=== PATIENT | female | born 1995 | race Caucasian/White ===

== ENCOUNTER 2020-02-24 11:54 | Observation (INO) | payer OTHER, SELFPAY ==
[2020-02-24] VITALS (19 sets, daily range): BP systolic 109–132; BP diastolic 70–80; PULSE 76–146; TEMP 36.4; O2SAT 95–100
[2020-02-24] MEDS: TERBUTALINE SULFATE 1 MG/ML VIAL (12:07)
--- NOTE | 2020-02-24 12:36 | OBADM ---
This patient, Yennifer Shane, admitted to the OB room OB Post 117 for observation. Patient/family oriented to hospital policies and general routines including ID bracelet, bed and alarms, visiting hours, pain management, procedures, bathroom and other care routines, personal items, smoking policy, room service/diet, and visiting hours. Patient/Family are encouraged to report perceived risks to care and to ask questions if they do not understand what they are told or what they should do.
[2020-02-24 12:42] LABS: Add Urine Microscopic? YES; Appearance Urine Cloudy (Clear); Bacteria Urine Trace /hpf; Bilirubin Urine Negative (Negative); Blood Urine Negative (Negative); Color Urine Yellow (Yellow); Glucose Urine UA Negative (Negative); Ketones Urine Negative (Negative); Leukocyte Esterase Ur 1+ LEU/UL (NEGATIVE); Mucus Urine Rare /lpf; Nitrate Urine Negative (Negative); Protein Urine Negative (Negative); RBC Urine 0-2 /hpf (0-2); Specific Grav Ur 1.017 (1.001-1.035); Squamous Epithelial Cell Urine Many /hpf (Few)
--- NOTE | 2020-02-24 12:48 | PC.NURSE ---
1145- called,informed pt came in for leaking of fluid. ROM plus was negative, pt noted to be having contractions about every 2-4 minutes. Informed pt has hx of chlamydia and trichomonis twice in this and pt states she wasn't told she was ever negative. Orders received to swab vagina for chlamydia/gonorrhea and trichomonis and give terbutaline for contractions.
--- NOTE | 2020-02-24 12:52 | PC.NURSE ---
1246- on unit, orders received can discharge pt home if contractions continue to be less then 6/hr.
--- NOTE | 2020-03-14 07:55 | P.PNOB_ITS ---
OB - Triage/Final Diagnosis Evaluation Laboratory results: Laboratory Tests 02/24/20 02/24/20 02/24/20 12:11 12:15 12:15 Urine Color Yellow Urine Appearance Cloudy H Urine pH 7.0 Ur Specific [place] 1.017 Urine Protein Negative Urine Glucose (UA) Negative Urine Ketones Negative Ur Blood (Man) Negative Urine Nitrate Negative Urine Bilirubin Negative Urine Urobilinogen 4.0 H Ur Leukocyte Esterase 1+ H Urine RBC 0-2 Urine WBC 4-6 H Ur Squamous Epith Cells Many H Urine Bacteria Trace Urine Mucus Rare C.trachomatis RNA (TMA) Not detected N.gonorrhoeae RNA (TMA) Not detected Trichomonas Direct ID Negative Final Diagnosis (1) Vaginal discharge during in third trimester: Code(s): O26.893 - Other specified related conditions, third trimester; N89.8 - Other specified noninflammatory disorders of vagina Status: Acute
== END 2020-02-24 13:10 | disposition home or self-care (01) ==
LOC: ANHOBOP 11:55 → ANHOBPP 11:55
PROVIDERS: Admitting Provider Obstetrics & Gynecology; PCP Internal Medicine; Visit Provider Obstetrics & Gynecology
DX: O26.893 Other specified pregnancy related conditions, third trimester (principal); N89.8 Other specified noninflammatory disorders of vagina; Z3A.00 Weeks of gestation of pregnancy not specified
CPT/HCPCS: 81001; 84112; 87086; 87491; 87591; 87808; G0378; G0379; J3105

== ENCOUNTER 2020-03-21 20:04 | Observation (INO) | payer OTHER, SELFPAY ==
[2020-03-21 20:20] VITALS: BMI 38.4
--- NOTE | 2020-03-21 22:15 | OBADM ---
This patient, Yennifer Shane, admitted to the OB room Labor/Delivery/Recovery 106 for observation. Patient/family oriented to hospital policies and general routines including ID bracelet, bed and alarms, visiting hours, pain management, procedures, bathroom and other care routines, personal items, smoking policy, room service/diet, and visiting hours. Patient/Family are encouraged to report perceived risks to care and to ask questions if they do not understand what they are told or what they should do.
--- NOTE | 2020-04-04 08:15 | PM.OBTRLD ---
OB - Triage/Final Diagnosis Final Diagnosis (1) Spotting affecting in third trimester: Code(s): O26.853 - Spotting complicating , third trimester Status: Acute
== END 2020-03-21 22:22 | disposition home or self-care (01) ==
PROVIDERS: Admitting Provider Obstetrics & Gynecology; Visit Provider Obstetrics & Gynecology
DX: O26.853 Spotting complicating pregnancy, third trimester (principal); Z3A.00 Weeks of gestation of pregnancy not specified
CPT/HCPCS: G0378; G0379

== ENCOUNTER 2020-04-04 06:12 | Inpatient (IN) | payer OTHER, SELFPAY ==
[2020-04-04] VITALS (170 sets, daily range): BP systolic 91–148; BP diastolic 49–107; PULSE 61–123; RESP 18; TEMP 35.9–37.1; O2SAT 82–100; BMI 37.7
--- NOTE | 2020-04-04 06:12 | LDADM ---
This patient, Yennifer Shane, was admitted to Labor/Delivery/Recovery 103 on 04/04/20 at 06:12. Plans for labor, pain management and were discussed with patient. Patient/family oriented to hospital policies and general routines including ID bracelet, bed and alarms, visiting hours, pain management, procedures, bathroom and other care routines, personal items, smoking policy, room service/diet and guest tray routines, security routines, and visiting hours. Patient/Family are encouraged to report perceived risks to care and to ask questions if they do not understand what they are told or what they should do. See OBIX for further documentation.
[2020-04-04 07:28] LABS: Basophils Percent Auto 0.4 % (0.2-1.2); Eosinophils Absolute Auto 0.2 K/mm3 (0-0.3); Eosinophils Percent Auto 1.4 % (0-4.4); Hematocrit 35.3 % (37.0-47.0); Hemoglobin 12.2 g/dL (12.0-15.0); Immature Granulocyte Absolute 0.06 K/mm3 (0.00-0.031); Immature Granulocyte Percent A 0.5 % (0-0.5); Lymphocytes Absolute Auto 2.44 K/mm3 (0.9-3.2); Lymphocytes Percent Auto 21.5 % (18.3-44.2); Mean Corpuscular HGB Conc 34.6 g/dl (32-36); Mean Corpuscular Hemoglobin 32.9 pg (26-34); Mean Corpuscular Volume 95.1 fl (80-100); Mean Platelet Volume 9.5 fl (7.4-10.4); Monocytes Absolute Auto 0.6 K/mm3 (0.1-0.6); Monocytes Percent Auto 5.4 % (2.6-8.5); Neutrophils Absolute Auto 8.1 K/mm3 (1.3-6.7); Neutrophils Percent Auto 70.8 % (45.5-73.1); Platelet Count Result 247 k/mm3 (150-375); Red Blood Count 3.71 M/mm3 (4.2-5.4); Red Cell Distribution Width 12.4 % (11.5-14.5); White Blood Count 11.4 K/mm3 (4.5-10.0)
[2020-04-04] MEDS: LACTATED RINGERS 1,000 ML 125 ML IV CONT ×3 (07:41→14:00)
[2020-04-04] MEDS: OXYTOCIN 30 UNITS/NS 500 ML 30 UNITS/500 ML BAG IV CONT (07:42)
--- NOTE | 2020-04-04 08:00 | WPDOBADMIT ---
Obstetrics - Admit Note Admission Note: 24 y/o @ 39w2d here for elective induction of labor. History of hsv. Has been on suppressive therapy since 36 weeks. No c/o outbreak symptoms and bright light exam unremarkable. Cervix 5/90/-2. AROM moderate amount of clear odorless fluid. Anticipate . record reviewed. No pertinent additions to the history and/or any subsequent changes in the physical findings that are not consistent with the expected course of the were found. Additions to the history and/or subsequent changes in the physical findings follow. None.
--- NOTE | 2020-04-04 08:43 | WPDANESEPP ---
Anes - Eval Pre Procedure Procedure: labor epidural Date/Time: 04/04/20 08:43 Surgeon: caryn puckett Preop Diagnosis: pain during labor Pre Op Diagnosis: iol Patient Data Age: 24 Gender: F Height: 5 ft 6 in Weight: 106 kg Last Vital Signs Temp 36.4 C L 04/04/20 08:13 Pulse 83 04/04/20 08:31 BP 116/82 04/04/20 08:31 Allergies Allergy/AdvReac Type Severity Reaction Status Date / Time No Known Allergies Allergy Unverified 03/06/18 18:11 Home Medications Medication Instructions Recorded Confirmed Type PNV cmb#95-ferrous fumarate-FA 1 tablet PO DAILY 03/10/20 03/21/20 History [] valacyclovir [Valtrex] 500 mg PO DAILY 03/10/20 04/04/20 History Laboratory Tests 04/04/20 04/04/20 04/04/20 07:20 07:20 07:20 WBC 11.4 K/mm3 H K/mm3 (4.5-10.0) RBC 3.71 M/mm3 L M/mm3 (4.2-5.4) Hgb 12.2 g/dL g/dL (12.0-15.0) Hct 35.3 % L % (37.0-47.0) MCV 95.1 fl fl (80-100) MCH 32.9 pg pg (26-34) MCHC 34.6 g/dl g/dl (32-36) RDW 12.4 % % (11.5-14.5) Plt Count 247 k/mm3 k/mm3 (150-375) MPV 9.5 fl fl (7.4-10.4) Immature Gran % (Auto) 0.5 % % (0-0.5) Neut % (Auto) 70.8 % % (45.5-73.1) Lymph % (Auto) 21.5 % % (18.3-44.2) Dixon % (Auto) 5.4 % % (2.6-8.5) Eos % (Auto) 1.4 % % (0-4.4) Baso % (Auto) 0.4 % % (0.2-1.2) Lymph # (Auto) 2.44 K/mm3 K/mm3 (0.9-3.2) Dixon # (Auto) 0.6 K/mm3 K/mm3 (0.1-0.6) Eos # (Auto) 0.2 K/mm3 K/mm3 (0-0.3) Baso # (Auto) 0.0 K/mm3 K/mm3 (0.0-0.1) Abs Immat Gran (auto) 0.06 K/mm3 H K/mm3 (0.00-0.031) Absolute Neuts (auto) 8.1 K/mm3 H K/mm3 (1.3-6.7) Absolute Nucleated RBC 0.0 K/mm3 K/mm3 (0.0-0.012) Nucleated RBC % 0.0 % % (0.0-0.2) RPR Pending Blood Type B Positive Antibody Screen Negative : gestational age (MARKO 04/09) Patient hx anesthesia problems: none Family hx anesthesia problems: none PMFSH Family History Family History Grandparent Congenital heart disease Diabetes mellitus Father Asthma Mother Asthma Social History Social History Smoking packs per day: 1 Smoking cigarettes per day: 20.0 Smoking status: Current every day smoker Tobacco type: cigarettes Substance use: current Gender identity (if verbalized by the patient): Female Spiritual care concerns: No Exam Day of Procedure 04/04/20 08:43 Patient weight: obese Heart: regular rate and rhythm Lungs: clear to auscultation and normal air movement Neurological: alert and oriented
[2020-04-04 12:55] LABS: Benzodiazepines Screen Urine Negative (Negative)
[2020-04-04 12:56] LABS: Barbiturate Screen Urine Negative (Negative)
[2020-04-04 13:01] LABS: Amphetamine Screen Urine Negative (Negative); Cannabinoid Screen Urine Positive (Negative); Cocaine Screen Urine Negative (Negative); Methadone Screen Urine Negative (Negative); Opiate Screen Urine Negative (Negative); Phencyclidine Screen Urine Negative (Negative)
--- NOTE | 2020-04-04 15:08 | PM.OBPRVD ---
OB - Delivery Note Procedure Delivery date: 04/04/20 Intrapartal events: None Induction method: per pitocin protocol Delivery monitor: external FHT and external uterine Route of delivery: Episiotomy description: None Laceration description: None Estimated blood loss (mL): 41 Anesthesia type: Epidural Baby Date of : 04/04/20 Time of : 14:53 Weeks of gestation at delivery: 39 Weight (pounds): 8 Weight (ounces): 3 presentation: vertex position: Right Occiput Anterior Placenta delivery description: Spontaneous cord vessel description: Nuchal Cord (Delivered through.) score one minute: 8 score five minutes: 9
[2020-04-04] MEDS: OXYTOCIN 30 UNITS/NS 500 ML 30 UNITS/500 ML BAG 125 UNITS IV CONT (15:47)
--- NOTE | 2020-04-04 17:24 | PC.NURSE ---
Patient transferred to post room #284 via [id number]. Support person present. Oriented to unit, room, information board, rooming in, admission packet and security measures. Patient verbalizes understanding.
[2020-04-04] MEDS: IBUPROFEN 600 MG TABLET PO (17:33)
[2020-04-05 05:56] LABS: Hemoglobin 10.8 g/dL (12.0-15.0)
--- NOTE | 2020-04-05 07:33 | PM.OBPNVD ---
OB - PN: Subj Subjective Date/time seen: 04/05/20 07:33 Patient comments: no complaints baby status: doing well OB - PN: Obj Data Labs CBC & Chem 7: 04/05/20 04:13 Labs: Laboratory Results - last 24 hr 04/04/20 04/04/20 04/05/20 07:20 12:20 04:13 Hgb 10.8 L Hct 32.0 L Urine Opiates Screen Negative Urine Methadone Screen Negative Ur Barbiturates Screen Negative Ur Phencyclidine Scrn Negative Ur Amphetamine Screen Negative U Benzodiazepines Scrn Negative Urine Cocaine Screen Negative U Cannabinoids Screen Positive A Blood Type B Positive Antibody Screen Negative OB - PN A/P Plan day: 1 Plan: routine care Time Spent With Patient Time: Total time spent is greater than 50% in coordination of care (as documented) at patient's floor/unit and/or counseling patient: Review of Systems Review of Systems: All systems reviewed & are unremarkable except as noted in HPI and below Exam Const: General: cooperative Limitations: no limitations
--- NOTE | 2020-04-05 07:50 | WPDANLDPN2 ---
Anes-Prog Note L&D Date/Time: 04/05/20 07:50 Comfortable throughout: labor and delivery Neuraxial method: epidural Epidural/Spinal procedure site: clean & non-tender Neuro status: Neuro function grossly intact. Cardiovascular status: normal Respiratory status: normal Airway patency: baseline Mental status: baseline Post-Op hydration status: normal Vital Signs: Last Vital Signs Temp 37.0 C 04/04/20 19:45 Pulse 78 04/04/20 19:45 Resp 18 04/04/20 19:45 BP 124/77 04/04/20 19:45 Pulse Ox 100 04/04/20 17:45 Pain score (VAS): 07/03 I/O: Intake & Output 04/04/20 04/04/20 04/05/20 15:59 23:59 07:59 Intake Total 2000 500 Output Total 41 200 Balance 1959 300 Post-procedural complaints: none Patient feedback: Patient satisfied with anesthetic care.
[2020-04-05] MEDS: IBUPROFEN 600 MG TABLET PO (10:13)
--- NOTE | 2020-04-05 10:24 | PC.NURSE ---
Patient was given the opportunity to view the discharge video Mother & Baby Care, The First Two Weeks and to ask questions. Patient declined viewing the video and has been given the mother/baby guide for home reference.
[2020-04-05 13:21] LABS: Rapid Plasma Reagin Non-Reactive (NonReactive)
[2020-04-06 10:00] VITALS: BP 139/85; PULSE 93; RESP 14; TEMP 36.7
--- NOTE | 2020-05-02 20:31 | PM.OBDSVD ---
DS: Admitting Diagnosis Admitting Diagnosis Admitting Diagnosis: IOL DS: Discharge Diagnosis Discharge Diagnosis (1) Vaginal delivery: Code(s): O80 - Encounter for full-term uncomplicated delivery Status: Acute OB - DS: Summary OB Procedures : None OB Procedures Intrapartum: Spontaneous Vag Delivery OB Procedures: : None Time Spent with Patient Time attestation: Total time spent providing and/or coordinating discharge services: Discharge Plan Discharge Attending physician on discharge: Molina Godinez Consulting providers: Gayle Hou ; Kaitlin Wade Discharging Clinician: Kaitlin Wade Patient Disposition: Home, Self-Care Activity: pelvic rest Diet: regular Discharge Instructions: Education: Mom and Baby Guide Given to: Mother Follow-Up: Call your delivering provider's office for an appointment to be seen in: 4 Weeks Mom and baby [facility] the follow-up appointment. Appointment Date/Time: April 06, 2020 at 10:00 am What to expect at your follow-up visit: Blood Pressure Check Physical Assessment Call [phone] if you are unable to keep your appointment time. BREAST CARE: * Bottle Feeding: * May apply ice packs EPISIOTOMY/PERINEAL CARE: * Until bleeding stops, use your sonya bottle after urinating * Change your pad frequently throughout the day * You may take sitz baths several times a day (fill your bathtub with warm water and soak for 20 minutes.) Do NOT bathe in the water * No tub baths until seen by your physician - You may shower ACTIVITY: * Rest as much as possible. * Do not exercise or lift anything heavier than your baby (such as laundry or other children.) * Avoid stairs or driving as much as possible. * Do not put anything into the vagina. No douching, tampons, or sexual activity until seen by physician. NOTIFY PHYSICIAN IF YOU HAVE ANY QUESTIONS OR IF ANY OF THE FOLLOWING SYMPTOMS OCCUR: * If your episiotomy or incision becomes red, swollen, or more painful than what you have experienced in the hospital. * If your vaginal bleeding becomes foul smelling. * If your vaginal bleeding becomes more heavy than a period or if your bleeding changes from pink to bright red. However, you may pass an occasional walnut-sized clot once or twice for the first week . * If you experience a sharp, shooting pain in your calves. * If you discover a hard, reddened area on your breast or if you experience flu-like symptoms. DIET: * Eat regular, well-balanced meals. * Drink plenty of fluids daily. If , drink to thirst. Patient Instructions: How to Stop Smoking (DC) Stand Alone Forms: General Discharge Information Follow-up/Referrals: Gayle Hou CNM [Certified Nurse Acetylene Burner] - 4 Weeks Discharge Medications: Continued valacyclovir [Valtrex] 500 mg Tablet 500 mg PO DAILY RF: 0 PNV cmb#95-ferrous fumarate-FA [] 28 mg iron- 800 mcg Tablet 1 tablet PO DAILY RF: 0 Date of admission: 04/04/20 06:12 Primary Care Provider: PHYSICIAN,ELECTRICAL ASSEMBLY TECHNICIAN Admitting Provider: Molina Godinez Attending physician on admission: Molina Godinez Condition: Stable
== END 2020-04-05 17:25 | disposition home or self-care (01) | DRG 560 ==
LOC: ANHLDR 06:14 → ANHOB2 17:32
PROVIDERS: Advanced Practice Midwife; Admitting Provider Obstetrics & Gynecology; Visit Provider Obstetrics & Gynecology
DX: O98.32 Other infections with a predominantly sexual mode of transmission complicating childbirth (principal); Z37.0 Single live birth; Z3A.39 39 weeks gestation of pregnancy; B00.9 Herpesviral infection, unspecified; O62.3 Precipitate labor; O69.81X0 Labor and delivery complicated by cord around neck, without compression, not applicable or unspecified; A56.8 Sexually transmitted chlamydial infection of other sites; O99.214 Obesity complicating childbirth; E66.9 Obesity, unspecified; O99.334 Smoking (tobacco) complicating childbirth; F17.210 Nicotine dependence, cigarettes, uncomplicated
CPT/HCPCS: 36415; 80307; 85014; 85018; 85025; 86592; 86850; 86900; 86901; A9270; J2590; J2795; J7120

== ENCOUNTER 2020-11-26 11:53 | Emergency (ER) | payer OTHER, SELFPAY ==
[2020-11-26 12:01] VITALS: BP 137/71; PULSE 100; RESP 14; TEMP 37; O2SAT 100
--- NOTE | 2020-11-26 12:25 | ED.URI ---
HPI - URI/Sore Throat General Chief Complaint: Upper Respiratory Infection Stated Complaint: Cough/congestion Time Seen by Provider: 11/26/20 12:08 Source: patient and RN notes reviewed Mode of arrival: ambulatory Limitations: no limitations History of Present Illness HPI Narrative: Patient presents today with a 1 week history of cough, rhinorrhea, congestion, postnasal drip, sneezing. The cough has worsened over the past 2 days. She does report intermittent pressure to the face. Denies fever, shortness of breath. States she has had a positive test at home a few weeks ago. She has an appointment set up in 10 days at an [facility]. She was on Augmentin approximately 2 months ago for chronic sinusitis diagnosed in the ER.[facility]. She has been taking Claritin without relief. Smokes 0.5 packs/day. MD elicited complaint: cough, rhinorrhea and nasal congestion Related Data Allergies Allergy/AdvReac Type Severity Reaction Status Date / Time clavulanic acid AdvReac Nausea and Verified 11/26/20 12:10 [From Augmentin] Vomiting Review of Systems Review of Systems: Narrative: CONSTITUTIONAL: Denies body aches, fever, chills, or sweats. EYES: Denies visual changes, redness, or discharge. ENT: Denies sore throat, or otalgia. + Congestion, rhinorrhea, postnasal drip, sneezing CARDIOVASCULAR: Denies chest pain, palpitations, or edema. RESPIRATORY: Denies dyspnea. + Cough GASTROINTESTINAL: Denies abdominal pain, nausea, vomiting, or diarrhea. GENITOURINARY: Denies dysuria or hematuria. SKIN: Denies rash, itching, or wounds. MUSCULOSKELETAL: Denies back pain, joint pain, or myalgia. NEUROLOGIC: Denies headache, numbness, tingling, or weakness. PSYCH: Denies depression or anxiety. [facility] Past Medical History Medical History (Updated 11/26/20 @ 12:42 by Mariposa Ponce, RADHA, BC) Bipolar disorder Depression PTSD (post-traumatic stress disorder) Family History Family History Grandparent Congenital heart disease Diabetes mellitus Father Asthma Mother Asthma Social History Social History (Updated 11/26/20 @ 12:42 by Mariposa Ponce, RADHA, ) Smoking packs per day: 0.25 Smoking cigarettes per day: 5.0 Smoking status: Current every day smoker Tobacco type: cigarettes Substance use: current Gender identity (if verbalized by the patient): Female Spiritual care concerns: No Comments At time of signature, I have reviewed and agree with nursing past medical, surgical, social and family history unless otherwise noted. Please see nursing chart for further information. There is no relevant family history pertinent to the presenting complaint Exam Narrative: Exam Narrative: GENERAL: Well-appearing, well-nourished, and in no acute distress. HEAD: Normocephalic, atraumatic. EYES: EOMI. No redness or drainage. Conjunctivae normal. ENT: Mucous membranes pink and moist. Nares congested. No rhinorrhea. Mild tenderness to the bilateral maxillary sinuses. TMs normal bilaterally. Throat normal. Uvula midline. NECK: Normal AROM. Supple. No lymphadenopathy. CHEST: No respiratory distress. Clear to auscultation. HEART: Regular rate and rhythm. No murmur appreciated. Normal peripheral pulses. EXTREMITIES: Normal range of motion. No edema. SKIN: Warm, dry, no rash. Capillary refill normal. Normal skin turgor. NEURO: No focal deficits. Alert and oriented x3. Gait steady. PSYCH: Normal affect. No signs of depression or anxiety. Course Vital Signs Vital signs: Vital Signs Temperature 98.6 F 11/26/20 12:01 Pulse Rate 100 11/26/20 12:01 Respiratory Rate 14 11/26/20 12:01 Blood Pressure 137/71 11/26/20 12:01 Pulse Oximetry 100 11/26/20 12:01 Temperature 98.6 F 11/26/20 12:01 Pulse Rate 100 11/26/20 12:01 Respiratory Rate 14 11/26/20 12:01 Blood Pressure 137/71 11/26/20 12:01 Pulse Oximetry 100
== END 2020-11-26 12:32 | disposition home or self-care (01) ==
PROVIDERS: Emergency Provider Nurse Practitioner
DX: J01.90 Acute sinusitis, unspecified (principal); F17.210 Nicotine dependence, cigarettes, uncomplicated
CPT/HCPCS: 99213; G0463

== ENCOUNTER 2025-03-27 11:26 | Emergency (ER) | payer SELFPAY ==
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
[2025-03-27 11:32] VITALS: BP 137/83; PULSE 95; RESP 20; TEMP 36.6; O2SAT 100
--- NOTE | 2025-03-27 11:48 | ED.URI ---
HPI - URI/Sore Throat General Chief Complaint: Upper Respiratory Infection Stated Complaint: aches/cough/sneezing Time Seen by Provider: 03/27/25 11:30 Source: patient and RN notes reviewed Mode of arrival: ambulatory Limitations: no limitations History of Present Illness HPI Narrative: 29-year-old female presents Express Care complaining of upper respiratory symptoms for 3 days. Patient reports sore throat, cough, congestion, runny nose, body aches, chills. Patient denies any nausea, vomiting, diarrhea, chest pain, breathing problems, earache, abdominal pain, or any other symptoms. Patient has been using Afrin help with congestion. Patient denies any significant past medical history. Patient does report she vapes but does not smoke cigarettes. Related Data Allergies Allergy/AdvReac Type Severity Reaction Status Date / Time clavulanic acid (From AdvReac Nausea and Verified 11/26/20 12:10 Augmentin) Vomiting Review of Systems Review of Systems: CONSTITUTIONAL: Denies fever, or sweats. Positive for body aches and chills EYES: Denies visual changes, redness, or discharge. ENT: Positive for rhinorrhea, congestion, sore throat. Negative forotalgia. CARDIOVASCULAR: Denies chest pain, palpitations, or edema. RESPIRATORY positive for cough. Negative for wheezing or Dyspnea. GASTROINTESTINAL: Denies abdominal pain, nausea, vomiting, or diarrhea. GENITOURINARY: Denies dysuria or hematuria. SKIN: Denies rash or itching. MUSCULOSKELETAL: Denies back pain, joint pain, or myalgia. NEUROLOGIC: Denies headache, numbness, or weakness. PSYCHIATRIC: Denies anxiety or depression. All other systems reviewed are negative, except as documented in HPI. [facility] Past Medical History Medical History PTSD (post-traumatic stress disorder) Bipolar disorder Depression Family History Family History Grandparent Congenital heart disease Diabetes mellitus Father Asthma Mother Asthma Social History Social History Smoking packs per day: 0.25 Smoking cigarettes per day: 5.0 Smoking status: Current every day smoker Tobacco type: cigarettes Substance use: current Gender identity (if verbalized by the patient): Female Spiritual care concerns: No Comments At the time of my signature, I reviewed and agree with the nursing past medical, surgical, social, and family history. There is no relevant family history pertinent to the patient complaint. Exam Narrative: GENERAL: This is a well-nourished, well-developed adult, in no apparent distress. They are non ill-appearing, nontoxic appearing. HEAD: normocephalic, atraumatic. EYES: Sclera clear/white. Conjunctiva normal. Vision is grossly intact. Extraocular movements intact EARS: External ears normal, auditory canals clear and without drainage, TMs normal without perforation. Hearing grossly intact. NOSE: External nose normal with no obvious nasal discharge, nasal turbinates erythematous, no rhinorrhea. THROAT: Mucous membranes moist, posterior pharynx erythematous. Uvula midline. Postnasal drip present NECK: Neck supple, non-tender without lymphadenopathy, masses or thyromegaly. CARDIOVASCULAR: Regular rate and rhythm without murmurs, gallops, or rubs. RESPIRATORY: Clear to auscultation. Breath sounds equal bilaterally. No wheezes, rales, or rhonchi. SKIN: warm, Dry, intact with no suspicious lesions or rash, good texture and turgor. NEURO: awake, alert, and oriented to person, place and time. There were no obvious focal neurologic abnormalities. EXTREMITIES: No joint tenderness, effusion, or edema noted. BACK: Nontender without deformity. No CVA tenderness. Course Course Emergency Course: Portions of this record may have been created with voice recognition software Level of Care: Express Care Visit Vital Signs Vital signs: Vital Signs Temperature 97.8 F 03/27/25 11:32 Pulse Rate 95 03/27/25 11:32 Respiratory Rate 20 03/27/25 11:32 Blood Pressure 137/83 03/27/25 11:32 Pulse Oximetry 100 03/27/25 11:32 Oxygen Delivery Room Air 03/27/25 11:32 Temperature 97.8 F 03/27/25 11:32 Pulse Rate 95 03/27/25 11:32 Respiratory Rate 20 03/27/25 11:32 Blood Pressure 137/83 03/27/25 11:32 Pulse Oximetry 100 03/27/25 11:32 Oxygen Delivery Room Air 03/27/25 11:32 Reviewed MDM - URI/Sore Throat MDM Narrative Medical decision making narrative: Rapid strep negative. Throat culture pending. Likely viral upper respiratory infection. Prescription Medrol Dosepak sent to pharmacy. Discussed physical exam findings. Advised supportive measures and signs/symptoms to go to the ER. Pt is appropriate for outpt treatment and f/u. Differential Diagnosis Differential diagnosis: Likely upper respiratory infection, sinusitis, viral infection and pharyngitis Lab Data Attestation: I reviewed the patient's lab results. Critical Care Time Critical Care Time Critical Care Time: No Discharge Plan Discharge Clinical Impression: Upper respiratory infection Qualifiers: URI type: unspecified viral URI Qualified Code(s): J06.9 - Acute upper respiratory infection, unspecified Patient Disposition: Home Condition: Stable Instructions: Antibiotic Form, Upper Respiratory Infection (ED) Additional Instructions: Your rapid strep swab was negative today at [facility]. You will be notified in a few days if the culture comes back positive for strep, and appropriate antibiotics will be called in for you at that time. Take the Medrol Dosepak as directed. Your symptoms are likely due to a viral illness, which is not treated with antibiotics. Viral symptoms can be present for up to 10-14 days. Take Tylenol or ibuprofen as needed for fever or pain. Follow the instructions on the bottle. Rest and stay hydrated. Follow up with your PCP in 5-7 days if symptoms are not improving. Go to the ER immediately if you developed difficulty breathing or swallowing Patient Language: Surinamese Prescriptions: New methylprednisolone 4 mg tablets,dose pack See Rx Instructions .ROUTE .COMPLEX Qty: 21 0RF Rx Instructions: for 6 days Follow-up/Referrals: PHYSICIAN,MANAGER OF [employer]ATIVE SERVICES [Primary Care Provider, Internal Medicine] Time of Disposition: 12:01
[2025-03-27 12:09] LABS: EDSTREPNEGPOS1 Negative (Negative)
== END 2025-03-27 12:09 | disposition home or self-care (01) ==
DX: J06.9 Acute upper respiratory infection, unspecified (principal); F17.290 Nicotine dependence, other tobacco product, uncomplicated
CPT/HCPCS: 87081; 87880; 99213; G0463